=== PATIENT | female | born 1975 | race Caucasian/White ===

== ENCOUNTER → 2020-05-03 07:47 | Outpatient (CLI) | payer OTHER, SELFPAY ==
[2014-06-23 21:21] VITALS: BMI 32.4
[2020-05-03 10:23] LABS: Anion Gap 5 (5-15); BUN 9 mg/dL (7-18); Calcium,Total 9.1 mg/dL (8.5-10.1); Chloride 109 mmol/L (98-107); Cholesterol 200 mg/dL (200); Creatinine, Serum 0.75 mg/dL (0.55-1.02); EST Glomerular Filtration Rate 88 mL/min (>60); Est Glom Filt Rate - Afr Amer 106 mL/min (>60); Glucose 89 mg/dL (74-106); High Density Lipoprotein 47 mg/dL; Potassium 4.4 mmol/L (3.5-5.1); Sodium Level 142 mmol/L (136-145); Triglycerides 169 mg/dL; Very Low Density Lipoprotein 34 mg/dL (5-40)
== END ==
PROVIDERS: PCP Family Medicine; Referring Provider Family Medicine; Visit Provider Family Medicine
DX: I10 Essential (primary) hypertension (principal)
CPT/HCPCS: 36415; 80048; 80061

== ENCOUNTER → 2020-09-24 09:25 | Outpatient (CLI) | payer OTHER, SELFPAY ==
[2014-06-23 21:21] VITALS: BMI 32.4
[2020-09-24 12:49] LABS: Anion Gap 6 (5-15); BUN 9 mg/dL (7-18); BUN/Creat Ratio 10.5 RATIO (10-20); Calcium,Total 9.6 mg/dL (8.5-10.1); Chloride 102 mmol/L (98-107); Creatinine, Serum 0.86 mg/dL (0.55-1.02); EST Glomerular Filtration Rate 75 mL/min (>60); Est Glom Filt Rate - Afr Amer 91 mL/min (>60); Glucose 119 mg/dL (74-106); Magnesium 2.1 mg/dL (1.6-2.6); Potassium 3.7 mmol/L (3.5-5.1); Sodium Level 138 mmol/L (136-145)
== END ==
PROVIDERS: PCP Family Medicine; Visit Provider Family Medicine
DX: R25.2 Cramp and spasm (principal)
CPT/HCPCS: 36415; 80048; 83735

== ENCOUNTER → 2020-11-22 10:11 | Outpatient (CLI) | payer OTHER, SELFPAY ==
[2014-06-23 21:21] VITALS: BMI 32.4
[2020-11-22 12:33] LABS: Anion Gap 2 (5-15); BUN 7 mg/dL (7-18); BUN/Creat Ratio 10.1 RATIO (10-20); Calcium,Total 8.7 mg/dL (8.5-10.1); Chloride 104 mmol/L (98-107); Cholesterol 219 mg/dL (200); Creatinine, Serum 0.69 mg/dL (0.55-1.02); EST Glomerular Filtration Rate 97 mL/min (>60); Est Glom Filt Rate - Afr Amer 117 mL/min (>60); Glucose 80 mg/dL (74-106); High Density Lipoprotein 42 mg/dL; Potassium 3.5 mmol/L (3.5-5.1); Sodium Level 136 mmol/L (136-145); Triglycerides 157 mg/dL; Very Low Density Lipoprotein 31 mg/dL (5-40)
[2020-11-22 12:39] LABS: Hemoglobin A1c 5.7 % (3.8-5.6)
== END ==
PROVIDERS: PCP Family Medicine; Visit Provider Family Medicine
DX: I10 Essential (primary) hypertension (principal); R73.09 Other abnormal glucose
CPT/HCPCS: 36415; 80048; 80061; 83036

== ENCOUNTER 2021-01-18 18:29 | Emergency (ER) | payer OTHER, SELFPAY ==
[2021-01-18 18:30] VITALS: BP 161/111; PULSE 96; RESP 25; TEMP 37.1; O2SAT 99; BMI 44.8
--- NOTE | 2021-01-18 18:32 | ED.RN ---
CALLED FOR EKG PER RN REQUEST, PULLED OLD EKGS FOR
--- NOTE | 2021-01-18 18:35 | RAD_ITS ---
STUDY: X-RAY CHEST REASON FOR EXAM: Female, 45 years old. Pain, shortness of breath TECHNIQUE: AP portable COMPARISON: None. FINDINGS: The lungs are clear and expanded. There is no demonstrated pleural abnormality. Normal size heart. Normal mediastinum and anna. Normal visualized pulmonary arteries. Normal visualized aortic arch and descending thoracic aorta. Normal visualized thoracic spine. Normal visualized ribs, clavicles, and shoulders. There is no demonstrated abnormality of the visualized soft tissue structures of the upper abdomen. RAD/Chest 1 View (Portable) IMPRESSION: Normal x-ray examination of the chest. Electronically Signed: Howard Topete MD at 19:27 EST , Service support ,
--- NOTE | 2021-01-18 18:36 | EKG12_ITS ---
Test Reason : CHEST PAIN Blood Pressure : / mmHG Vent. Rate : 095 BPM Atrial Rate : 095 BPM P-R Int : 178 ms QRS Dur : 088 ms QT Int : 348 ms P-R-T Axes : 054 054 066 degrees QTc Int : 437 ms Normal sinus rhythm Anterior infarct , age undetermined , cannot be excluded Abnormal ECG Confirmed by ESTELLA HARPER, BERTHA ([id number]), editor continuity and script CHEN MG ([id number]) on 01/21/2021 12:15:55 PM Referred By: MIRIAM Confirmed By:BERTHA SORIA MD
[2021-01-18] MEDS: predniSONE 20 MG Tablet 60 MG PO (18:43)
--- NOTE | 2021-01-18 18:46 | ED.VIS.GEN ---
History of Present Illness Chief Complaint: Chest Pain Informant: Patient Onset: Days, Weeks Context: Sudden Onset Timing: Continuous Quality: Shortness of breath and chest pain during argument Location: Right anterior superior chest Current Severity: - - Presently no chest pain regarding shortness of breath Maximum Severity: Severe - During argument and exertion Worsened by: Dyspnea on exertion Relieved by: Nothing Associated Symptoms: Covid-like symptoms Narrative: Patient is a 45-year-old woman who is a smoker and had a positive Covid test on December 28 at [facility]. Patient showed me an email she received and I have verified that she did have a positive Covid test. She does have history of COPD. She has not been on prednisone/steroids recently. She does report rhinorrhea, congestion. She denies sore throat. She states her taste has been altered for the past week. She does report headache without photophobia, visual, ocular or auditory symptoms. She denies neck pain or neck stiffness. The anterior right chest pain occurred during argument. It has resolved. She denies abdominal pain, nausea, vomiting or diarrhea. She denies dysuria, frequency, urgency or hematuria. She denies history of VTE or any risk factors. She denies leg pain, swelling or discoloration. Prior similar symptoms: Yes - Due to Covid Recent Illness/Hospitalization: No - Past Medical History (1) History of COPD Status: Chronic (2) History of hypertension Status: Acute (3) COVID-19 virus infection Status: Acute Past Medical History - Allergies and Home Meds Allergies/Adverse Reactions: Allergies No Known Allergies Allergy (Verified 01/18/21 18:30) Primary Care Physician: Aidan Manning MD [Primary Care Provider] - Prior records reviewed: Yes Lives: Spouse/ Significant Other Smoking Status: Current every day smoker Alcohol: None Drugs: None Review of Systems General: Reports: Chills, Fever, Malaise, Subjective. Denies: Sweats Eyes: Denies: Visual changes - bilaterally, Blurred Vision - bilaterally ENT: Reports: Rhinorrhea, Sore throat. Denies: Bilateral ear pain Cardiovascular: Reports: Chest pain, Palpitations Respiratory: Reports: Dyspnea, Cough, Dyspnea on exertion. Denies: Sputum, Orthopnea, Paroxysmal nocturnal dyspnea Gastrointestinal: Denies: Abdominal pain, Nausea, Vomiting, Diarrhea, Constipation, Melena, Hematochezia, -, - Genitourinary: Denies: Dysuria, Hematuria, Frequency Musculoskeletal: Denies: Myalgias, Arthralgias, Neck pain, Back pain, Swelling, Extremity Pain, -, - Skin: Denies: Rash, Wounds Neurological: Denies: Headache, Weakness, Parasthesia Psych: Reports: Anxiety Endocrine: Denies: Polyuria, Polydipsia Hematologic: Denies: Easy bruising, Easy bleeding Allergy: Denies: Uticaria, Swelling of the mouth Physical Exam Vital Signs/Narrative: Vital Signs Temp Pulse Resp BP Pulse Ox 01/18/21 18:30 98.7 F 96 25 H 161/111 H 99 Inital Vital Signs reviewed: Yes General: Well nourished, Well developed, Obese, Acute Distress Head: Normocephalic, Atraumatic Eyes: Perrl, EOMI. Negative for: Pale conjunctiva, Scleral icterus ENT: Moist mucous membranes, No rhinorrhea, TM's clear Neck: Supple, Nontender, No lymphadenopathy, No JVD, - - Tc is midline. There is no inspiratory expiratory stridor. Cardiovascular: Regular rate, Regular rhythm, No murmurs, Normal S1, Normal S2 Respiratory: Chest nontender, Wheezing - Minimal expiratory wheezing., Decreased Air Movement. Negative for: No distress, CTA bilaterally Abdomen: Soft, Nontender, Nondistended, Normal bowel sounds Rectal: Deferred Back: Nontender, Normal Inspection Extremities: Nontender, No edema, - - There is no asymmetry, swelling, discoloration, leg vein distention, palpable cords or tenderness along the distribution of the deep venous system. Skin: Normal color, No rash, Cyanosis - Of all toes. Patient was not wearing socks or shoes when she was outside waiting for squad. Neurological: Alert, Oriented x3, Cranial nerves II-XII grossly intact, Normal Strength, Normal Sensation Psychological: Normal affect, Normal Mood Diagnostic/Tx/Re-eval Chest X-Ray - ED: 1 View, Read by ED Physician, Normal, Heart, Lungs, Mediastinum, Bony Structures, No Acute Disease, - - As interpreted by me at 1915. 01/18/21 18:35 Chest 1 View (Portable) [RAD] Stat Laboratory Results 01/18/21 01/18/21 01/18/21 18:45 18:45 18:45 WBC 14.1 H RBC 5.14 Hgb 14.8 Hct 45.2 MCV 87.9 MCH 28.8 MCHC 32.7 RDW Std Deviation 45.4 H RDW Coeff of Kaycee 14.1 Plt Count 401 MPV 9.5 Immature Gran % (Auto) 0.400 Neut % (Auto) 74.1 H Lymph % (Auto) 18.1 L [place] % (Auto) 4.6 Eos % (Auto) 2.0 Baso % (Auto) 0.8 Absolute Neuts (auto) 10.5 H Absolute Lymphs (auto) 2.56 Nucleated RBC % 0 D-Dimer Quant (PE/DVT) 0.39 Sodium 139 Potassium 3.6 Chloride 104 Carbon Dioxide 27.0 Anion Gap 8 BUN 11 Creatinine 1.06 H Estim Creat Clear Calc 56.66 Est GFR (MDRD) Af Amer 71 Est GFR (MDRD) Non-Af 59 L BUN/Creatinine Ratio 10.4 Glucose 130 H Calcium 9.2 D-dimer is normal. Basic metabolic panel is marked for slight elevation glucose of 130. White count is elevated with no bandemia. - EKG Initial EKG Interpretation: Sinus Rhythm - Normal sinus rhythm ventricular rate of 95. MA interval 178 ms. QRS duration 88 ms. QT duration 348 ms. [place] is normal. There is decreased anterior force. There is no acute ischemic changes noted. EKG was ordered per nurse protocol. - Medical Decision Making Patient presents with dyspnea which may be due to Covid. This may also be due to exacerbation of her COPD. Will obtain chest x-ray to evaluate for pneumothorax and pneumonia. Appropriate blood work was ordered. She was treated with prednisone, DuoNeb and albuterol aerosolized treatments. Patient was reassessed at 2004. She states she feels markedly better. She was discharged prescription for albuterol, burst of prednisone and doxycycline. Patient is moving significantly more air. There is no wheezing noted. ED Disposition - Plan for ED Patient: Disposition: Home or Assisted Living Diagnosis: Acute exacerbation of chronic obstructive pulmonary disease (COPD), Dyspnea due to COVID-19, Anxiety reaction Instructions: ED COPD Flare Prescriptions: Prednisone [Deltasone] 40 mg PO DAILY #10 tab Prescription Printed Doxycycline 100 mg PO BID #10 cap Prescription Printed Albuterol Inhaler [Ventolin Hfa] 2 puff INHALATION Q4H PRN PRN #1 inhaler PRN Reason: Wheezing Prescription Printed Referrals: Aidan Manning MD [Primary Care Provider] - 3-5 Days if not improving
[2021-01-18 18:51] VITALS: BP 161/111; PULSE 95; RESP 20; O2SAT 99
[2021-01-18] MEDS: Albuterol 2.5 MG/3 ML VIAL.NEB. INHALATION (18:58)
[2021-01-18] MEDS: Ipratropium/Albuterol Sulfate 3 ML AMPUL.NEB INHALATION (18:58)
[2021-01-18 18:59] VITALS: PULSE 97; RESP 16
[2021-01-18 19:02] LABS: Absolute Lymphocyte Count 2.56 X10^3/uL (0.83-4.51); Absolute Neutrophil Count 10.5 X10^3/uL (2.0-7.7); Basophil# 0.12 X10^3/uL; Basophil% 0.8 % (0-1); Eosinophil# 0.28 X10^3/uL; Hematocrit 45.2 % (37-47); Hemoglobin 14.8 g/dL (12.0-15.0); Lymphocyte # 2.56 X10^3/ul (4.0); Lymphocyte % 18.1 % (19-41); Mean Corp Hgb Conc 32.7 g/dL (32-36); Mean Corpuscular Hgb 28.8 pg (27.0-32.0); Mean Corpuscular Volume 87.9 fL (81-99); Mean Platelet Vol. 9.5 fl (6.2-12.0); Monocyte# 0.65 X10^3/uL; Monocyte% 4.6 % (0-10); NRBC Flagged by Analyzer 0 % (0-5); Neutrophil # 10.46 X10^3/uL (2.7-7.7); Neutrophil % 74.1 % (47-70); Platelet Count 401 K/mm3 (150-450); RBC Distribution Width CV 14.1 % (11.6-14.6); RBC Distribution Width SD 45.4 fl (35.1-43.9); Red Blood Count 5.14 M/mm3 (4.2-5.4); White Blood Count 14.1 K/mm3 (4.4-11.0)
[2021-01-18 19:13] LABS: Anion Gap 8 (5-15); BUN 11 mg/dL (7-18); BUN/Creat Ratio 10.4 RATIO (10-20); Calcium,Total 9.2 mg/dL (8.5-10.1); Chloride 104 mmol/L (98-107); Creatinine, Serum 1.06 mg/dL (0.55-1.02); EST Glomerular Filtration Rate 59 mL/min (>60); Est Glom Filt Rate - Afr Amer 71 mL/min (>60); Estimated Creatinine Clearance 56.66 ml/min; Glucose 130 mg/dL (74-106); Potassium 3.6 mmol/L (3.5-5.1); Sodium Level 139 mmol/L (136-145)
[2021-01-18 19:14] LABS: D-Dimer Quantitative (DVT/PE) 0.39 FEU/ug/m (0.27-0.49)
[2021-01-18 20:09] VITALS: BP 159/102; O2SAT 97
== END 2021-01-18 20:23 | disposition home or self-care (01) ==
PROVIDERS: Emergency Provider Emergency Medicine; PCP Family Medicine
DX: J44.1 Chronic obstructive pulmonary disease with (acute) exacerbation (principal); U07.1 COVID-19; R06.00 Dyspnea, unspecified; F41.1 Generalized anxiety disorder; F43.0 Acute stress reaction; I10 Essential (primary) hypertension; F17.200 Nicotine dependence, unspecified, uncomplicated; E66.9 Obesity, unspecified; Z68.41 Body mass index [BMI] 40.0-44.9, adult
CPT/HCPCS: 71045; 80048; 85025; 85379; 93005; 94640; 99285; A4216

== ENCOUNTER → 2021-09-05 07:07 | Outpatient (CLI) | payer OTHER, SELFPAY ==
[2021-09-05 11:13] LABS: Anion Gap 7 (5-15); BUN 12 mg/dL (7-18); BUN/Creat Ratio 14.9 RATIO (10-20); Calcium,Total 9.1 mg/dL (8.5-10.1); Chloride 102 mmol/L (98-107); Cholesterol 246 mg/dL (200); Creatinine, Serum 0.81 mg/dL (0.55-1.02); EST Glomerular Filtration Rate 80 mL/min (>60); Est Glom Filt Rate - Afr Amer 97 mL/min (>60); Glucose 114 mg/dL (74-106); High Density Lipoprotein 43 mg/dL; Potassium 3.5 mmol/L (3.5-5.1); Sodium Level 138 mmol/L (136-145); Triglycerides 282 mg/dL; Very Low Density Lipoprotein 56 mg/dL (5-40)
== END ==
PROVIDERS: PCP Family Medicine; Referring Provider Family Medicine; Visit Provider Family Medicine
DX: I10 Essential (primary) hypertension (principal)
CPT/HCPCS: 36415; 80048; 80061

== ENCOUNTER → 2022-03-25 | Outpatient (CLI) | payer OTHER, SELFPAY ==
[2022-03-25 10:28] LABS: Anion Gap 8 (5-15); BUN 9 mg/dL (7-18); BUN/Creat Ratio 11.8 RATIO (10-20); Calcium,Total 9.1 mg/dL (8.5-10.1); Chloride 102 mmol/L (98-107); Cholesterol 184 mg/dL (200); Creatinine, Serum 0.76 mg/dL (0.55-1.02); EST Glomerular Filtration Rate 85 mL/min (>60); Est Glom Filt Rate - Afr Amer 103 mL/min (>60); Glucose 102 mg/dL (74-106); High Density Lipoprotein 47 mg/dL; Potassium 3.7 mmol/L (3.5-5.1); Sodium Level 138 mmol/L (136-145); Triglycerides 210 mg/dL; Very Low Density Lipoprotein 42 mg/dL (5-40)
== END | disposition home or self-care (01) ==
LOC: MTLAB 07:14
PROVIDERS: PCP Family Medicine; Referring Provider Family Medicine; Visit Provider Family Medicine
DX: I10 Essential (primary) hypertension (principal)
CPT/HCPCS: 36415; 80048; 80061

== ENCOUNTER → 2022-07-16 | Outpatient (CLI) | payer OTHER, SELFPAY ==
[2022-07-24 15:11] LABS: HPV APTIMA, High Risk Negative (Negative); HPV Reflexed? YES, CHARGE PATIENT
== END | disposition home or self-care (01) ==
PROVIDERS: PCP Family Medicine; Visit Provider Nurse Practitioner Family
DX: Z12.4 Encounter for screening for malignant neoplasm of cervix (principal)
CPT/HCPCS: 87624; 88175; G0145

== ENCOUNTER → 2022-10-10 | Outpatient (CLI) | payer OTHER, SELFPAY ==
[2022-10-10 10:45] LABS: Anion Gap 6 (5-15); BUN 10 mg/dL (7-18); Calcium,Total 9.1 mg/dL (8.5-10.1); Chloride 103 mmol/L (98-107); Cholesterol 189 mg/dL (200); Creatinine, Serum 0.67 mg/dL (0.55-1.02); EST Glomerular Filtration Rate 100 mL/min (>60); Est Glom Filt Rate - Afr Amer 121 mL/min (>60); Glucose 103 mg/dL (74-106); High Density Lipoprotein 51 mg/dL; Potassium 3.6 mmol/L (3.5-5.1); Sodium Level 138 mmol/L (136-145); Thyroid Stim Hormone (TSH) 0.95 uIU/mL (0.358-3.74); Triglycerides 175 mg/dL; Very Low Density Lipoprotein 35 mg/dL (5-40)
== END | disposition home or self-care (01) ==
LOC: MTLAB 07:24
PROVIDERS: PCP Family Medicine; Referring Provider Family Medicine; Visit Provider Family Medicine
DX: I10 Essential (primary) hypertension (principal); E66.9 Obesity, unspecified
CPT/HCPCS: 36415; 80048; 80061; 84443

== ENCOUNTER → 2023-10-08 | Outpatient (CLI) | payer OTHER, SELFPAY ==
--- NOTE | 2023-10-08 16:36 | CT_ITS ---
STUDY: LOW DOSE CT LUNG CANCER SCREENING REASON FOR EXAM: Female, 48 years old. TOBACCO USE RADIATION DOSAGE (If Supplied By Facility): CTDIvol = ( 4.02 ) mGy, DLP = ( 137.93 ) mGycm TECHNIQUE: No contrast was administered. Low dose technique was utilized (average mAS-38 and kVp 120). 1.25 mm axial source images with a slice interval of 1.25-mm were reconstructed in lung windows. 2.5 mm axial source images with a slice interval of 2.5-mm were reconstructed in lung windows. 5.0 mm axial source images with a slice interval of 5.0-mm were reconstructed in soft tissue windows. COMPARISON: None. Emphysema: Mild emphysema. No noncalcified nodule or mass. Endobronchial lesion: None Aorta: No aortic aneurysm. CORONARY ARTERIES: Coronary artery calcification is seen. Heart: No cardiomegaly. Pulmonary artery: Normal Mediastinal nodes: Normal Other chest and abdominal findings: None CT/Low Dose CT Lung Screening IMPRESSION: Lung-RADS category 1 - Continue annual screening with LDCT in 12 months. IMPORTANT NOTES FOR USE: ACR Lung-RADS Version 1.1 Assessment Categories Release Date: 2018 Category: Coded 0-4 bases on nodule(s) with highest degree of suspicion. Negative screen is defined as categories 1 and 2; a positive screen is defined as categories 3 and 4. Category 3 and 4A nodules that are unchanged on interval CT should be coded as category 2, and individuals returned to screening in 12 months. Category 4X: Category 3 or 4 nodules with additional imaging findings that increase the suspicion of lung cancer, such as spiculation, GGN that doubles in size in 1 year, enlarged lymph notes, etc. Category Modifiers: S (significant finding unrelated to lung cancer) Electronically Signed: Jamie Shearer MD at 23:32 EST ,
== END | disposition home or self-care (01) ==
LOC: CT 16:35
PROVIDERS: PCP Family Medicine; Referring Provider Family Medicine; Visit Provider Family Medicine
DX: Z12.2 Encounter for screening for malignant neoplasm of respiratory organs (principal); Z87.891 Personal history of nicotine dependence
CPT/HCPCS: 71271

== ENCOUNTER 2023-10-29 17:22 | Emergency (ER) | payer OTHER, SELFPAY ==
[2023-10-29 17:23] VITALS: BP 169/89; PULSE 90; RESP 18; TEMP 36.2; O2SAT 98; BMI 42.9
[2023-10-29 20:11] VITALS: BP 187/80; PULSE 83; RESP 18; TEMP 36.9; O2SAT 98
[2023-10-29 20:51] LABS: Absolute Lymphocyte Count 3.27 X10^3/uL (0.83-4.51); Absolute Neutrophil Count 5.8 X10^3/uL (2.0-7.7); Basophil# 0.13 X10^3/uL; Basophil% 1.3 % (0-1); Eosinophil# 0.39 X10^3/uL; Eosinophils% 3.8 % (0-5); Hematocrit 42.9 % (37-47); Hemoglobin 14.2 g/dL (12.0-15.0); Lymphocyte # 3.27 X10^3/ul (0.83-4.51); Lymphocyte % 32.2 % (19-41); Mean Corp Hgb Conc 33.1 g/dL (32-36); Mean Corpuscular Volume 87.7 fL (81-99); Mean Platelet Vol. 9.3 fl (6.2-12.0); Monocyte# 0.52 X10^3/uL; Monocyte% 5.1 % (0-10); NRBC Flagged by Analyzer 0 % (0-5); Neutrophil # 5.79 X10^3/uL (2.7-7.7); Neutrophil % 57.1 % (47-70); Platelet Count 374 K/mm3 (150-450); RBC Distribution Width CV 13.5 % (11.6-14.6); RBC Distribution Width SD 43.5 fl (35.1-43.9); Red Blood Count 4.89 M/mm3 (4.2-5.4); White Blood Count 10.2 K/mm3 (4.4-11.0)
--- NOTE | 2023-10-29 21:08 | CT_ITS ---
EXAM: CT NECK WITH INTRAVENOUS CONTRAST CLINICAL INDICATION: right tonsillar swelling TECHNIQUE: Helically acquired images were obtained of the neck with intravenous contrast. This CT exam was performed using one or more of the following dose reduction techniques: automated exposure control, adjustment of the mA and/or kV according to patient size, and/or use of iterative reconstruction technique. CONTRAST: IV 75mL Isovue-370 COMPARISON: No relevant prior studies available. FINDINGS: NASOPHARYNX: Mild adenoidal tonsillar hypertrophy. SUPRAHYOID NECK: Mild faucial tonsil hypertrophy without evidence of peritonsillar abscess. INFRAHYOID NECK: No significant abnormality. The larynx, hypopharynx and supraglottis are unremarkable. SUBMANDIBULAR/PAROTID GLANDS: No significant abnormality. Glands are normal in size. THYROID: No significant abnormality. No enlarged or calcified nodules. SINUSES: Mild mucosal thickening in the sphenoid sinuses. DENTAL: Multiple absent teeth, periapical lucencies, and dental caries. BONES/JOINTS: No acute fracture. SOFT TISSUES: No significant abnormality. Degenerative changes in the spine. VASCULATURE: Atherosclerosis of the aorta and carotid arteries. LYMPH NODES: No significant abnormality. No lymphadenopathy. LUNG APICES: Normal as visualized. CT/Soft Tissue Neck WITH Contrast IMPRESSION: Mild faucial tonsil hypertrophy without evidence of peritonsillar abscess. New. Possible mild tonsillitis/pharyngitis. No evidence of peritonsillar abscess or other acute findings. Electronically Signed: Jourdan Sloan DO at 21:59 EST ,
[2023-10-29 21:18] LABS: ALB/GLOB Ratio 0.9 RATIO (0.9-2.4); AST(SGOT) 14 U/L (15-37); Alanine Aminotransfer ALT/SGPT 23 U/L (13-56); Albumin, Serum 3.5 g/dL (3.2-5.0); Alkaline Phosphatase 73 U/L (45-117); Anion Gap 7 (5-15); BUN 10 mg/dL (7-18); BUN/Creat Ratio 10.8 RATIO (10-20); Calcium,Total 8.6 mg/dL (8.5-10.1); Chloride 102 mmol/L (98-107); Creatinine, Serum 0.93 mg/dL (0.55-1.02); EST Glomerular Filtration Rate 68 mL/min (>60); Est Glom Filt Rate - Afr Amer 82 mL/min (>60); Estimated Creatinine Clearance 62.49 ml/min; Globulin 3.7 g/dL (2.2-4.2); Glucose 196 mg/dL (74-106); Potassium 3.2 mmol/L (3.5-5.1); Protein, Total 7.2 g/dL (6.4-8.2); Sodium Level 136 mmol/L (136-145)
[2023-10-29] MEDS: dexAMETHasone 10 MG/ML Vial IV (21:32)
--- NOTE | 2023-10-29 22:21 | EX.ED.DYSGE1 ---
HPI History of Present Illness Chief Complaint: Sore Throat Narrative Narrative: 48-year-old female with sore throat for greater than a month. She states she was initially treated with antibiotics and steroids. She had a 15-day taper. She states that she somewhat got better however she still notes some irritation to the back of her throat. No fevers, chills, nausea, vomiting. No difficulty swallowing or breathing. She is tolerating her secretions. Patient is denying any pain. She denies foul odor or bad breath. She denies foul taste in her mouth.She states she followed up with her primary care provider today who recommended she come to the emergency room to rule out peritonsillar abscess. PFSH PFS Home Medications amlodipine 5 mg tablet 5 mg PO DAILY 01/18/21 [History Last Taken Unknown] lisinopril 20 mg-hydrochlorothiazide 25 mg tablet 1 ea PO DAILY 01/18/21 [History Last Taken Unknown] metoprolol tartrate 50 mg tablet 50 mg PO QHS PRN Hypertensive Emergency 01/18/21 [History Last Taken Unknown] Allergy/AdvReac Type Severity Reaction Status Date / Time No Known Allergies Allergy Verified 10/29/23 17:23 Social History Smoking Status: Current every day smoker tobacco type: cigarettes ROS ROS ED Constitutional Constitutional ED: Denies chills, fever(s) or sweats Eyes Eyes: Denies blurry vision or change in vision ENT ENT ED: Reports sore throat; Denies ear pain Cardiovascular Cardiovascular: Denies chest pain, palpitations or racing heartbeat Respiratory/Chest Respiratory/Chest: Denies cough, dyspnea or sputum Gastrointestinal Gastrointestinal: Denies abdominal pain, constipation, diarrhea, nausea or vomiting Genitourinary Genitourinary ED: Denies dysuria, hematuria or urinary frequency Musculoskeletal Musculoskeletal: Denies arthralgias, myalgias or neck pain Integumentary Denies abscess, Abrasions or rash Neurologic Neurologic: Denies headache(s), paresthesias or weakness Psychiatric Psychiatric: Denies anxiety, depression, suicidal ideation or suicidal thoughts Endocrine Endocrinology: Denies polydipsia or polyuria EXAM Physical Exam Const Vital Signs: 10/29/23 17:23 10/29/23 20:11 Temperature 97.1 F L 98.4 F Temperature Source Temporal Oral Pulse Rate 90 83 Respiratory Rate 18 18 Blood Pressure 169/89 H 187/80 H Blood Pressure Mean 115 115 Pulse Ox 98 98 Oxygen Delivery Method Room Air Room Air Positive well nourished General Appearance ED: cyanotic; Negative for pallor HEENT Reports moist mucous membranes and dry mucous membranes normocephalic Face and Sinus: normal facial exam Nose: external nose normal and nares normal External Ear: external ears normal Mouth ED: Yes oral and palatal mucosa normal, Yes lips normal, Yes tongue normal, Yes salivary gland normal and Yes dry mucous membranes Mouth: oral and palatal mucosa normal, lips normal, tongue normal, salivary gland normal and dry mucous membranes Throat: tonsils abnormal right erythema Eyes PERRL and EOMs intact bilaterally Resp normal respiratory effort Effort and Inspection: Negative for retractions Cardio regular rate and regular rhythm Neuro oriented x3 and CN's II-XII intact bilaterally Sensorium / Orientation: alert Motor Exam: strength 5/5 throughout Psych mental status grossly normal Skin no rashes or lesions noted and no wounds General Skin Exam: Negative for jaundice or pallor MDM MDM MDM Narrative Medical decision making narrative: Patient presenting with mild sore throat. On examination she has some mild edema to the right peritonsillar region. There is no exudates. No significant pain. No stridor on exam. Patient tolerating oral secretions. No difficulty swallowing or breathing. Patient reports that she has had this pain for over a month. Upon following up with her PCP she is referred to the ER for a CT of the neck to look for peritonsillar abscess. CBC was obtained to assess white blood cell count, hemoglobin, platelets. CMP to assess liver function, renal function electrolytes. Her labs were unremarkable. CT soft tissue neck was obtained and does not show any evidence of peritonsillar abscess. There are some nonspecific tonsillar inflammation. Patient counseled of this. I will have her follow-up with ENT. She was given a dose of Decadron IV to help with the sore throat. Return precautions were discussed. Impression: 1. Tonsillitis Lab Data Attestation: I reviewed the patient's lab results. Labs: Laboratory Results - last 24 hr 10/29/23 20:35 WBC 10.2 RBC 4.89 Hgb 14.2 Hct 42.9 MCV 87.7 MCH 29.0 MCHC 33.1 RDW Std Deviation 43.5 RDW Coeff of Kaycee 13.5 Plt Count 374 MPV 9.3 Immature Gran % (Auto) 0.500 Neut % (Auto) 57.1 Lymph % (Auto) 32.2 [place] % (Auto) 5.1 Eos % (Auto) 3.8 Baso % (Auto) 1.3 H Absolute Neuts (auto) 5.8 Absolute Lymphs (auto) 3.27 Nucleated RBC % 0 Sodium 136 Potassium 3.2 L Chloride 102 Carbon Dioxide 27.0 Anion Gap 7 BUN 10 Creatinine 0.93 Estim Creat Clear Calc 62.49 Est GFR (MDRD) Af Amer 82 Est GFR (MDRD) Non-Af 68 BUN/Creatinine Ratio 10.8 Glucose 196 H Calcium 8.6 Total Bilirubin 0.30 AST 14 L ALT 23 Alkaline Phosphatase 73 Total Protein 7.2 Albumin 3.5 Globulin 3.7 Albumin/Globulin Ratio 0.9 Radiography Diagnostic Testing: Clinical Impression(s) from Imaging Studies Soft Tissue Neck CT 10/29/23 21:08 IMPRESSION: Mild faucial tonsil hypertrophy without evidence of peritonsillar abscess. New. Possible mild tonsillitis/pharyngitis. No evidence of peritonsillar abscess or other acute findings. Electronically Signed: Jourdan Sloan DO at 21:59 EST , Discharge Plan Triage Chief Complaint: Sore Throat ED Provider: Jose Elias Dx/Rx/DC Orders Instructions: ED Pharyngitis, Report Pending Prescriptions: No Action amlodipine 5 MG tablet 5 mg PO DAILY metoprolol tartrate 50 MG tablet 50 mg PO QHS PRN (Reason: Hypertensive Emergency) lisinopril-hydrochlorothiazide 1 EACH tablet 1 ea PO DAILY Primary Care Provider: Aidan Manning Referrals: Aidan Manning MD [Primary Care Provider] - Disposition Disposition: Home, Self Care Discharge Date/Time: 10/29/23 22:26
== END 2023-10-29 22:26 | disposition home or self-care (01) ==
PROVIDERS: Emergency Provider Student in an Organized Health Care Education/Training Program; PCP Family Medicine; Visit Provider Student in an Organized Health Care Education/Training Program
DX: J35.1 Hypertrophy of tonsils (principal); F17.210 Nicotine dependence, cigarettes, uncomplicated; Z79.899 Other long term (current) drug therapy
CPT/HCPCS: 70491; 80053; 85025; 87880; 96374; 99283; Q9967; A4216

== ENCOUNTER → 2023-11-30 | Outpatient (CLI) | payer OTHER, SELFPAY ==
[2023-11-30 14:12] LABS: Hemoglobin A1c 6.2 % (3.8-5.6)
== END | disposition home or self-care (01) ==
LOC: MFPLAB 09:33
PROVIDERS: PCP Family Medicine; Visit Provider Family Medicine
DX: R73.9 Hyperglycemia, unspecified (principal)
CPT/HCPCS: 36415; 83036

== ENCOUNTER → 2024-12-03 | Outpatient (CLI) | payer OTHER, SELFPAY ==
[2024-12-03 09:28] LABS: AST(SGOT) 12 U/L (15-37); Alanine Aminotransfer ALT/SGPT 20 U/L (13-56); Albumin, Serum 3.8 g/dL (3.2-5.0); Alkaline Phosphatase 72 U/L (45-117); Anion Gap 4 (5-15); BUN 12 mg/dL (7-18); BUN/Creat Ratio 16.2 RATIO (10-20); Calcium,Total 9.1 mg/dL (8.5-10.1); Chloride 104 mmol/L (98-107); Cholesterol 184 mg/dL (200); Creatinine, Serum 0.74 mg/dL (0.55-1.02); EST Glomerular Filtration Rate 87 mL/min (>60); Est Glom Filt Rate - Afr Amer 106 mL/min (>60); Globulin 3.8 g/dL (2.2-4.2); Glucose 104 mg/dL (74-106); High Density Lipoprotein 52 mg/dL; Protein, Total 7.6 g/dL (6.4-8.2); Sodium Level 139 mmol/L (136-145); Triglycerides 143 mg/dL; Very Low Density Lipoprotein 29 mg/dL (5-40)
[2024-12-03 09:32] LABS: Hemoglobin A1c 6.2 % (3.8-5.6)
== END | disposition home or self-care (01) ==
LOC: LAB 08:16
PROVIDERS: PCP Family Medicine; Referring Provider Family Medicine; Visit Provider Family Medicine
DX: R73.9 Hyperglycemia, unspecified (principal)
CPT/HCPCS: 36415; 80053; 80061; 83036

== ENCOUNTER → 2025-06-10 | Outpatient (CLI) | payer OTHER, SELFPAY ==
--- OUTSIDE RECORDS SUMMARY | 2025-06-10 09:09 | XMS RPT_ITS | CCD ---
Author Organization [facility] Inform ion Partnership [facility] Care Team Providers Care Stone Trimmer Name Role Phone Dr. Aidan Manning Primary Care Provider Dr. Aidan Manning Referring Provider [phone] Roof IMAGE PROCESSING ENGINEER, GUERA Camacho Attending Provider [phone] Aidan Manning Referring Unavailable Aidan Manning Attending Unavailable Aidan Manning Primary Care Unavailable Medications Current Medications Medication Drug Class(es) Dates Sig (Normalized) Sig (Original) amLODIPine 5 mg oral tablet (5 sources) Dihydropyridine Calcium Channel [place] Start: 01-18-2021 take 5 mg by mouth once daily Amlodipine Active 5 MG PO DAILY January 18, 2021 12:00am hydroCHLOROthiazide 25 mg / lisinopril 20 mg oral tablet (5 sources) Thiazide Diuretic, Angiotensin Converting Enzyme Inhibitor Start: 01-18-2021 Lisinopril-Hyd rochlorothiazi de Active 1 EACH PO DAILY January 18, 2021 12:00am metoprolol tartrate 50 mg oral tablet (5 sources) beta-Adrenergic [place] Start: 01-18-2021 take 50 mg by mouth at bedtime Metoprolol Tartrate Active 50 MG PO AT BEDTIME January 18, 2021 12:00am Completed/Discontinued Medications Medication Drug Class(es) Dates Sig (Normalized) Sig (Original) [id number] 200 actuat albuterol 0.09 mg/actuat metered dose inhaler (5 sources) beta2-Adrenergic Agonist Start: 01-18-2021 End: 10-29-2023 take 1 puff(s) by inhalation every four hours as needed Albuterol Sulfate Discontinued 2 PUFF INHALATION EVERY 4 HOURS NEEDED 1 January 18, 2021 12:00am [place] 7th, 2023 8:16pm doxycycline hyclate 100 mg oral capsule (8 sources) Tetracycline-cla ss Drug Start: 10-03-2023 End: 10-10-2023 take 100 mg by mouth twice daily Doxycycline Hyclate Discontinued 100 MG PO TWICE A DAY 14 October 03, 2023 12:00am October 10, 2023 12:31am Start: 01-18-2021 End: 10-03-2023 take 100 mg by mouth twice daily Doxycycline Monohydrate Discontinued 100 MG PO TWICE A DAY January 18, 2021 12:00am October 03, 2023 10:51am predniSONE 10 mg oral tablet (8 sources) Start: 10-03-2023 End: 10-18-2023 Prednisone Discontinued 10 M G PO .COMPLEX 35 October 03, 2023 12:00am October 18, 2023 12:04am 10 mg orally; 40mg x5 days, 20mg x5 days, 10mg x5 days Start: 01-18-2021 End: 10-03-2023 take 40 mg by mouth once daily at mealtime Prednisone Discontinued 40 MG PO DAILY January 18, 2021 12:00am October 03, 2023 10:51am With food Problems Problem Classification Problem Date Documented Da te Episodic/Chronic Anxiety disorders (5 sources) Anxiety; Translations: [Generalized anxiety disorder] 01-19-2021 Chronic Chronic obstructive pulmonary disease and bronchiectasis (5 sources) Acute exacerbation of chronic obstructive airways disease; Translations: [Chronic obstructive pulmonary disease with (acute) exacerbation] 01-19-2021 Chronic Diabetes mellitus without complication (1 source) Hyperglycemia, unspecified; Translations: [Hyperglycemia, unspecified] Onset: 12-26-2024 Episodic Other circulatory disease (5 sources) H/O: hypertension; Translations: [Personal history of other diseases of the circulatory system] 01-18-2021 Episodic Other lower respiratory disease (5 sources) History of chronic obstructive airway disease; Translations: [Personal history of other diseases of the respiratory system] 01-18-2021 Episodic Other upper respiratory infections (6 sources) Upper respiratory infection; Translations: [Acute upper respiratory infection, unspecified] 10-03-2023 Episodic Viral infection (10 sources) Disease caused by 2019-nCoV; Translations: [COVID-19] 01-18-2021 Episodic Results Test Name Value Interpretation Reference Range Facility Comprehensive Metabolic Prof grayson 12-03-2024 Albumin [Mass/Vol] 3.8 g/dL Normal 3.2-5.0 [facility] Comment on above: Performed By: #### L 500.4100, L501.9985, L500.4050 #### [facility] [address] [place], [address] Albumin/Globulin [Mass ratio] 1.0 {ratio} Normal 0.9-2 .4 [facility] Comment on above: Performed By: #### L 500.4100, L501.9985, L500.4050 #### [facility] [address] [place], [address] ALK P 72 U/L Normal 45-117 [facility] Comment on above: Performed By: #### L 500.4100, L501.9985, [id number] #### [facility] [address] [place], [address] ALT [Catalytic activity/Vol] 20 U/L Normal 13-56 [facility] Comment on above: Performed By: #### L 500.4100, L501.9985, L500.4050 #### [facility] [address] [place], [address] AST [Catalytic activity/Vol] 12 U/L Low 15-37 [facility] Comment on above: Performed By: #### L 500.4100, L501.9985, [id number] #### [facility] [address] [place], [address] Bilirubin [Mass/Vol] 0.50 mg/dL Normal 0.20-1.00 [facility] Comment on above: Result Comment: For patients on eltrombopag therapy, use of Dimension [place] TBIL is not recommended. Performed By: #### L 500.4100, [id number], L500.4050 #### [facility] [address] [place], [address] BUN/CRE 16.2 RATIO Normal 10-20 [facility] Comment on above: Performed By: #### L 500.4100, L501.9985, [id number] #### [facility] [address] [place], [address] CA,Total 9.1 mg/dL Normal 8.5-10.1 [facility] Comment on above: Performed By: #### L 500.4100, L501.9985, [id number] #### [facility] [address] [place], [address] Chloride [Moles/Vol] 104 mmol/L Normal 98-107 [facility] Comment on above: Performed By: #### L 500.4100, L501.9985, [id number] #### [facility] [address] [place], [address] CO2 [Moles/Vol] 30.0 mmol/L Normal 21.0-32.0 [facility] Comment on above: Performed By: #### L 500.4100, [id number], [id number] #### [facility] [address] [place], [address] Creatinine [Mass/Vol] 0.74 mg/dL Normal 0.55-1.02 [facility] Comment on above: Result Comment: The validity of the calculated GFR GFRAA in patients over 70 years has not been determined. Clinical correlation is essential. Performed By: #### L 500.4100, L501.9985, L500.4050 #### [facility] [address] [place], [address] EST GFR - AA 106 mL/min Normal >60 [facility] Comment on above: Result Comment: Afri can Eritrean GFR Calc Performed By: #### L 500.4100, L501.9985, [id number] #### [facility] [address] [place], [address] GAP 4 Low 5-15 [facility] Comment on above: Performed By: #### L 500.4100, [id number], [id number] #### [facility] [address] [place], [address] GFR/1.73 sq M.predicted donald g non-blacks MDRD (S/P/Bld) [Vol rate/Area] 87 mL/min/{1.73_m2} Normal >60 [facility] Comment on above: Result Comment: Non- GFR Calc Performed By: #### L 500.4100, L501.9985, [id number] #### [facility] [address] [place], [address] Globulin (S) [Mass/Vol] 3.8 g/dL Normal 2.2-4.2 [facility] Comment on above: Performed By: #### L 500.4100, L501.9985, [id number] #### [facility] [address] [place], [address] Glucose [Mass/Vol] 104 mg/dL Normal 74-106 [facility] Comment on above: Result Comment: Fast ing Glucose result from 100 to 125 mg/dL suggests IMPAIRED HOMEOSTASIS per A.D.A. criteria. Performed By: #### L 500.4100, L501.9985, [id number] #### [facility] [address] [place], [address] Potassium [Moles/Vol] 4.0 mmol/L Normal 3.5-5.1 [facility] Comment on above: Performed By: #### L 500.4100, [id number], [id number] #### [facility] [address] [place], [address] Sodium [Moles/Vol] 139 mmol/L Normal 136-145 [facility] Comment on above: Performed By: #### L 500.4100, [id number], [id number] #### [facility] [address] [place], [address] T PROT 7.6 g/dL Normal 6.4-8.2 [facility] Comment on above: Performed By: #### L 500.4100, [id number], [id number] #### [facility] [address] [place], [address] Urea nitrogen [Mass/Vol] 12 mg/dL Normal 7-18 [facility] Comment on above: Performed By: #### L 500.4100, [id number], [id number] #### [facility] [address] [place], [address] Hemoglobin A1con 12-03-2024 HbA1c (Bld) [Mass fraction] 6.2 % High 3.8-5.6 [facility] Comment on above: Result Comment: Norm al < 5.7 % Prediabetic 5.7 - 6.4 % Diabetic >or= 6.5 % Please note range changes. Performed By: #### L 500.4100, [id number], [id number] #### [facility] [address] [place], [address] Lipid Profileon 12-03-2024 Cholesterol [Mass/Vol] 184 mg/dL Normal 200 [facility] Comment on above: Result Comment: <200 mg/dL Desirable 200-240 mg/dL Borderline >240 mg/dL High Risk Performed By: #### L 500.4100, L501.9985, L500.4050 #### [facility] [address] [place], [address] Cholesterol in HDL [Mass/Vol] 52 mg/dL Normal [facility] Comment on above: Result Comment: The drugs N-Acetylcysteine and Metamizole may falsely depress this assay. Reference Range HDL <40 mg/dL Low HDL Cholesterol HDL >or= 60 mg/dL High HDL Cholesterol Performed By: #### L 500.4100, L501.9985, [id number] #### [facility] [address] [place], [address] Cholesterol in LDL [Mass/Vol] 103 mg/dL Normal 0-130 [facility] Comment on above: Performed By: #### L 500.4100, [id number], [id number] #### [facility] [address] [place], [address] Cholesterol in VLDL [Mass/Vol] 29 mg/dL Normal 5-40 [facility] Comment on above: Performed By: #### L 500.4100, L501.9985, [id number] #### [facility] [address] [place], [address] Triglyceride [Mass/Vol] 143 mg/dL Normal [facility] Comment on above: Result Comment: The drugs N-Acetylcysteine and Metamizole may falsely depress this assay. Serum Triglycerides Reference Interval Normal <150 mg/dL Borderline high 150 - 199 mg/dL High 200 - 499 mg/dL Very High > or = 500 mg/dL Performed By: #### L 500.4100, L501.9985, L500.4050 #### [facility] [address] [place], [address] Whole blood hemoglobin A1c/t otal hemoglobin ratio (mass fraction)Ordered By: Aidan Manning on 11-30-2023 HbA1c (Bld) [Mass fraction] 6.2 % 3.8-5.6 [facility] Comment on above: Normal < 5.7 % Predi abetic 5.7 - 6.4 % Diabetic >or= 6.5 % Please note range changes. Absolute lymphocyte countOrd ered By: Jose Elias on 10-29-2023 Lymphocytes Auto (Unsp spec) [#/Vol] 3.27 10*3/uL 0.83-4.51 [facility] Basophil percentageOrdered B y: Jose Elias on 10-29-2023 Basophils/100 WBC (Bld) 1.3 % 0-1 [facility] Bilirubin [Mass/Vol] 0.30 mg/dL 0.20-1.00 [facility] Comment on above: For patients on eltr ombopag therapy, use of Dimension [place] TBIL is not recommended. Chloride [Moles/Vol] 102 mmol/L 98-107 [facility] Eosinophils/100 WBC (Bld) 3.8 % 0-5 [facility] Glucose [Mass/Vol] 196 mg/dL 74-106 [facility] Comment on above: Fasting Glucose resu lt greater than or equal to 126 mg/dL suggests DIABETES MELLITUS per A.D.A. criteria. Neutrophils (Bld) [#/Vol] 5.8 10*3/uL 2.0-7.7 [facility] Neutrophils/100 WBC (Bld) 57.1 % 47-70 [facility] Potassium [Moles/Vol] 3.2 mmol/L 3.5-5.1 [facility] Protein [Mass/Vol] 7.2 g/dL 6.4-8.2 [facility] Sodium [Moles/Vol] 136 mmol/L 136-145 [facility] WBC (Bld) [#/Vol] 10.2 10*3/uL 4.4-11.0 [facility] Blood erythrocytes count (nu mber/volume)Ordered By: Jose Elias on 10-29-2023 RBC (Bld) [#/Vol] 4.89 10*6/uL 4.2-5.4 [facility] Blood hemoglobin measurement (mass/volume)Ordered By: Jose Elias on 10-29-2023 Hemoglobin (Bld) [Mass/Vol] 14.2 g/dL 12.0-15. 0 [facility] Blood lymphocytes/100 leukoc ytesOrdered By: Jose Elias on 10-29-2023 Lymphocytes/100 WBC (Bld) 32.2 % 19-41 [facility] Blood monocytes/100 leukocyt esOrdered By: Jose Elias on 10-29-2023 Monocytes/100 WBC (Bld) 5.1 % 0-10 [facility] Blood platelet mean volumeOr dered By: Jose Elias on 10-29-2023 Platelet mean volume (Bld) [Entitic vol] 9.3 fL 6.2-12.0 [facility] Determination of erythrocyte mean corpuscular volume (MCV)Ordered By: Jose Elias on 10-29-2023 MCV (RBC) [Entitic vol] 87.7 fL 81-99 [facility] Hematocrit Auto (Bld) [Volum e fraction]Ordered By: Jose Elias on 10-29-2023 Hematocrit (Bld) [Volume fraction] 42.9 % 37-47 [facility] - Chemistry and C hemistry - challengeOrdered By: Jose Elias on 10-29-2023 ALP [Catalytic activity/Vol] 73 U/L 45-117 [facility] ALT [Catalytic activity/Vol] 23 U/L 13-56 [facility] CO2 [Moles/Vol] 27.0 mmol/L 21.0-32.0 [facility] Globulin (S) [Mass/Vol] 3.7 g/dL 2.2-4.2 [facility] Urea nitrogen/Creatinine [Mass ratio] 10.8 mg/mg 10-20 [facility] - Hematology and Cell countsOrdered By: Jose Elias on 10-29-2023 Erythrocyte distribution width (RBC) [Entitic vol] 43.5 fL 35.1-43.9 [facility] Erythrocyte distribution width (RBC) [Ratio] 13.5 % 11.6-14.6 [facility] Immature granulocytes/100 WB C (Bld) 0.500 % 0.0-0.9 [facility] Comment on above: IG% - Immature Granu locytes (promyelocytes, myelocytes and metamyelocytes) > 1% indicates that a LEFT SHIFT is Present. MCH (RBC) [Entitic mass] 29.0 pg 27.0-32.0 [facility] Nucleated RBC/100 WBC (Bld) [Ratio] 0 % 0-5 [facility] MCHC Auto (RBC) [Mass/Vol]Or dered By: Jose Elias on 10-29-2023 MCHC (RBC) [Mass/Vol] 33.1 g/dL 32-36 [facility] No Panel InformationOrdered By: Jose Elias on 10-29-2023 Estimated Creatinine Clearance Calc 62.49 ml/min [facility] Estimated GFR (MDRD) Amer 82 mL/min >60 [facility] Comment on above: GFR Calc Estimated GFR (MDRD) Non-Af Amer 68 mL/min >60 [facility] Comment on above: Non- GFR Calc Platelets bldOrdered By: Heath Elias on 10-29-2023 Platelets (Bld) [#/Vol] 374 10*3/uL 150-450 [facility] Serum or plasma albumin jessica urement (mass/volume)Ordered By: Jose Elias on 10-29-2023 Albumin [Mass/Vol] 3.5 g/dL 3.2-5.0 [facility] Serum or plasma albumin/glob ulin mass ratioOrdered By: Jose Elias on 10-29-2023 Albumin/Globulin [Mass ratio] 0.9 {ratio} 0.9-2 .4 [facility] Serum or plasma calcium jessica urement (mass/volume)Ordered By: Jose Elias on 10-29-2023 Calcium [Mass/Vol] 8.6 mg/dL 8.5-10.1 [facility] Serum or plasma creatinine m easurement (mass/volume)Ordered By: Jose Elias on 10-29-2023 Creatinine [Mass/Vol] 0.93 mg/dL 0.55-1.02 [facility] Comment on above: The validity of the calculated GFR & GFRAA in patients over 70 years has not been determined. Clinical correlation is essential. Serum or plasma urea nitroge n measurement (mass/volume)Ordered By: Jose Elias on 10-29-2023 Urea nitrogen [Mass/Vol] 10 mg/dL 7-18 [facility] Thin prep Papanicolaou smear with manual screeningOrdered By: Jose Elias on 10-29-2023 Thin prep Papanicolaou smear with manual screening 14 U/L 15-37 [facility] Thin prep Papanicolaou smear with manual screening 7 5-15 [facility] Throat Streptococcus pyogene s antigen detection by immunofluorescenceOrdered By: Jose Elias on 10-29-2023 S. pyogenes Ag IF Ql (Throat) [facility] Basophil percentageon 2021 Chloride [Moles/Vol] 102 mmol/L 98-[address] [facility] Work Phone: [phone] Cholesterol [Mass/Vol] 184 mg/dL <200 [facility] Work Phone: Comment on above: <200 mg/dL Desirable 200-240 mg/dL Borderline >240 mg/dL High Risk Glucose [Mass/Vol] 102 mg/dL 74-106 [facility] Work Phone: Comment on above: Fasting Glucose resu lt from 100 to 125 mg/dL suggests IMPAIRED HOMEOSTASIS per A.D.A. criteria. Potassium [Moles/Vol] 3.7 mmol/L 3.5-5.1 [facility] Work Phone: Sodium [Moles/Vol] 138 mmol/L 136-145 [facility] Work Phone: Triglyceride [Mass/Vol] 210 mg/dL <199 [facility] Work Phone: Comment on above: The drugs N-Acetylcy steine and Metamizole may falsely depress this assay.Serum Triglycerides Reference Interval Normal <150 mg/dL Borderline high 150 - 199 mg/dL High 200 - 499 mg/dL Very High > or = 500 mg/dL Laboratory - Chemistry and C hemistry - challengeon 03-25-2022 CO2 [Moles/Vol] 28.0 mmol/L 21.0-32.0 [facility] Work Phone: [phone] Urea nitrogen/Creatinine [Mass ratio] 11.8 mg/mg 10-20 [facility] Work Phone: [phone] No Panel Informationon 03-25 Estimated GFR (MDRD) Amer 103 mL/min >60 [facility] Work Phone: Comment on above: GFR Calc Estimated GFR (MDRD) Non-Af Amer 85 mL/min >60 [facility] Work Phone: Comment on above: Non- GFR Calc Serum or plasma calcium jessica urement (mass/volume)on 03-25-2022 Calcium [Mass/Vol] 9.1 mg/dL 8.5-10.1 [facility] Work Phone: Serum or plasma cholesterol in HDL measurement (mass/volume)on 03-25-2022 Cholesterol in HDL [Mass/Vol] 47 mg/dL >40 [facility] Work Phone: Comment on above: The drugs N-Acetylcy steine and Metamizole may falsely depress this assay. Reference Range HDL <40 mg/dL Low HDL Cholesterol HDL >or= 60 mg/dL High HDL Cholesterol Serum or plasma cholesterol in VLDL measurement (mass/volume)on 03-25-2022 Cholesterol in VLDL [Mass/Vol] 42 mg/dL 5-40 [facility] Work Phone: Serum or plasma creatinine m easurement (mass/volume)on 03-25-2022 Creatinine [Mass/Vol] 0.76 mg/dL 0.55-1.02 [facility] Work Phone: Comment on above: The validity of the calculated GFR & GFRAA in patients over 70 years has not been determined. Clinical correlation is essential. Serum or plasma low density lipoprotein (LDL) cholesterol measurement (mass/volume)on 03-25-2022 Cholesterol in LDL [Mass/Vol] 95 mg/dL 0-130 [facility] Work Phone: Serum or plasma urea nitroge n measurement (mass/volume)on 03-25-2022 Urea nitrogen [Mass/Vol] 9 mg/dL 7-18 [facility] Work Phone: Thin prep Papanicolaou smear with manual screeningon 03-25-2022 Thin prep Papanicolaou smear with manual screening 8 5-15 [facility] Work Phone: Vital Signs Date Time Vital Sign Value Performing Clinician Faci lity 10-29-2023 20:11-0500 Body temperature 98.4 [degF] Dr. Aidan Manning Work Phone: [facility] 10-29-2023 20:11-0500 Diastolic blood pressure 80 mm[Hg] Dr. Aidan Manning Work Phone: [facility] 10-29-2023 20:11-0500 Heart rate 83 /min Dr. Aidan Manning Work Phone: [facility] 10-29-2023 20:11-0500 Respiratory rate 18 /min Dr. Aidan Manning Work Phone: [facility] 10-29-2023 20:11-0500 SaO2% (BldA) [Mass fraction] 98 % Dr. Aidan Manning Work Phone: [facility] 10-29-2023 20:11-0500 Systolic blood pressure 187 mm[Hg] Dr. Aidan Manning Work Phone: [facility] 10-29-2023 17:23-0500 Body height 162.[address] Aidan Manning Work Phone: [phone] [place] [address] 10-29-2023 17:23-0500 Body mass index (BMI) [Ratio] 42.9 kg/m2 Dr. Aidan Manning Work Phone: [phone] [place] [address] 10-29-2023 17:23-0500 Body weight 113.[address] Aidan Manning Work Phone: [facility] 10-03-2023 10:42-0500 Body height 162.[address] Aidan Manning Work Phone: [facility] 10-03-2023 10:42-0500 Body mass index (BMI) [Ratio] 42.5 kg/m2 Dr. Aidan Manning Work Phone: [facility] 10-03-2023 10:42-0500 Body temperature 99.1 [degF] Dr. Aidan Manning Work Phone: [facility] 10-03-2023 10:42-0500 Body weight 112.[address] Aidan Manning Work Phone: [facility] 10-03-2023 10:42-0500 Diastolic blood pressure 88 mm[Hg] Dr. Aidan Manning Work Phone: [facility] 10-03-2023 10:42-0500 Heart rate 102 /min Dr. Aidan Manning Work Phone: [facility] 10-03-2023 10:42-0500 Respiratory rate 14 /min Dr. Aidan Manning Work Phone: [facility] 10-03-2023 10:42-0500 SaO2% (BldA) [Mass fraction] 95 % Dr. Aidan Manning Work Phone: [facility] 10-03-2023 10:42-0500 Systolic blood pressure 134 mm[Hg] Dr. Aidan Manning Work Phone: [facility] Encounters Encounter Date Encounter Type Care Provider Facility Start: 12-03-2024 End: 12-03-2024 ambulatory Aidan Manning Facility:[facility] Start: 11-30-2023 End: 11-30-[address] Aidan Manning Work Phone: [facility] Work Phone: Start: 11-30-2023 End: 11-30-[address] Aidan Manning Work Phone: [facility] Start: 10-29-2023 End: 10-29-2023 Emergency department patient visit Dr. Aidan Manning Work Phone: [facility] Work Phone: Start: 10-08-2023 End: 10-08-[address] Aidan Manning Work Phone: [facility] Work Phone: Start: 10-08-2023 End: 10-08-[address] Aidan Manning Work Phone: [facility] Work Phone: Start: 10-03-2023 End: 10-03-[address] Aidan Manning Work Phone: [facility] Work Phone: Start: 07-16-2022 End: 07-16-2022 ambulatory [facility] Work Phone: Start: 07-16-2022 End: 07-16-2022 Patient encounter procedure [facility], Specimen Start: 03-25-2022 End: 03-25-2022 Patient encounter procedure [facility], [place] Procedures Date Procedure Procedure Detail Performing Clinician Start: 10-29-2023 CT of soft tissues o f neck with contrast Dr. Aidan Manning Work Phone: Start: 10-29-2023 Streptococcus pyogen es antigen assay Dr. Aidan Manning Work Phone: Start: 10-08-[address] Aidan good Work Phone: Plan of Treatment Date Care Activity Detail Author Start: 10-29-2023 [facility] Start: 10-29-2023 Streptococcus pyogenes antigen assay Group A Streptococcus Rapid Screen [facility] Path report.final Dx Spec [facility] Work Phone: Patient Education ED Pharyngitis , Report Pending [facility] Work Phone: Patient referral [facility] Work Phone: Payers Date Payer Category Payer Self-pay [id number] 2020 Unknown [id number] Unknown [id number] Social History Date Type Detail Facility Start: 01-18-2021 End: 10-29-2023 Tobacco smoking status NHIS Unknown if ever smoked [facility] Start: 01-18-2021 None [facility] Start: 01-18-2021 Spouse/ Signif icant Other [facility] Start: 1975 Sex Assigned At Female W [facility] Evaluation note Note Date & Type Note Facility Evaluation note No assessment information availa ble [facility] Work Phone: Evaluation note Note Date & Type Note Facility Evaluation note Diagnosis Onset Date URI (upper respiratory infection) acute [facility] Work Phone: Advance Directives No Advanced Directives Records Found Advance Directive Response Recorded Date/ Time Living Will No January 18 7:53pm Power of Picker Tender Helper No January 18, 2021 7:53pm Advance Directive Response Recorded Date/ Time Living Will No January 18 6:53pm Power of Picker Tender Helper No January 18, 2021 6:53pm Advance Directive Response Recorded Date/ Time Living Will No October 29 8:16pm Power of Picker Tender Helper No October 29, 2023 8:16pm Chief Complaint and Reason for Visit Chief Complaint SORE THROAT TOBACCO USE Reason for Visit URI (upper respirato ry infection) Chief Complaint SORE THROAT TOBACCO USE sore throat Reason for Visit URI (upper respirato ry infection) Summary Purpose Family History No Family History Records Found Additional Source Comments Goals (unrecognized section and content) Goals may be documented in a n alternate sectionGoals may be documented in an alternate sectionGoals may be documented in an alternate sectionGoals may be documented in an alternate sectionGoals may be documented in an alternate section Care Teams (unrecognized sec tion and content) Team Status: Active Member Role Status Dates Dr. Brian Mccoy MD Family Provider Active Dr. Aidan Manning MD Primary Care Provider Active Team Status: Inactive Member Role Status Dates Dr. Aidan Manning MD Primary Care Provider, Referring Provider Active Dwayne Gandara NP, IMAGE PROCESSING ENGINEER-C Attending Provider Active Team Status: Inactive Member Role Status Dates Dr. Aidan Manning MD Primary Care Provi suzette, Attending Provider, Referring Provider Active Team Status: Inactive Member Role Status Dates Dr. Aidan Manning MD Primary Care Provider Active Dr. Jose Elias DO Emergency Provider Active Team Status: Inactive Member Role Status Dates Dr. Aidan Manning MD Primary Care Provider, Attending Provider Active Team Status: Inactive Member Role Status Dates Dr. Aidan Manning MD Primary Care Provider Active Dr. Jose Elias DO Attending Provider, Emergency Provider Active INFORMATION SOURCE (unrecogn ized section and content) DATE CREATED AUTHOR 12/27/2024 [facility] FOR RECORDS PERTAINING TO PATIENTS WHO ARE OR HAVE BEEN ENROLLED IN A CHEMICAL DEPENDENCY/SUBSTANCEABUSE PROGRAM, SOME INFORMATION MAY BE OMITTED. This clinical summary was aggregated from multiple sources. Caution should be exercised in using it in the provision of clinical care. This summary normalizes information from multiple sources, and as a consequence, information in this document may materially change the coding, format and clinical context of patient data. In addition, data may be omitted in some cases. CLINICAL DECISIONS SHOULD BE BASED ON THE PRIMARY CLINICAL RECORDS. [facility], [facility]. provides no warranty or guarantee of the accuracy or completeness of information in this document.
[2025-06-10 10:31] LABS: Creatinine, Urine (random) 279.00 mg/dL (28.00-217.00); Microalbumin,Random Urine 95.1 mg/L (<20 mg/L)
[2025-06-10 10:33] LABS: AST(SGOT) 16 U/L (<=31); Alanine Aminotransfer ALT/SGPT 19 U/L (<=34); Albumin, Serum 4.3 g/dL (3.5-5.0); Alkaline Phosphatase 75 U/L (35-104); Anion Gap 12 (5-15); BUN 12 mg/dL (4-19); BUN/Creat Ratio 14.2 RATIO (10-20); Calcium,Total 9.7 mg/dL (7.6-11.0); Carbon Dioxide 25.4 mmol/L (21.0-32.0); Chloride 100 mmol/L (98-108); Cholesterol 151 mg/dL (<=200); Globulin 3.1 g/dL (2.2-4.2); Glucose 99 mg/dL (70-99); Low Density Lipoprotein Calc. 82 mg/dL; Potassium 3.8 mmol/L (3.3-5.1); Triglycerides 130 mg/dL; Very Low Density Lipoprotein 26 mg/dL (5-40); cholesterol:hdl ratio screen 3.54
== END | disposition home or self-care (01) ==
LOC: LAB 09:06
PROVIDERS: PCP Family Medicine; Referring Provider Family Medicine; Visit Provider Family Medicine
DX: E11.9 Type 2 diabetes mellitus without complications (principal)
CPT/HCPCS: 36415; 80053; 80061; 82043; 82570